=== PATIENT | female | born 1950 | race Caucasian/White ===

== ENCOUNTER 2016-09-18 03:40 | Inpatient (IN) | payer MEDICARE, MEDICAID ==
[2016-09-18 03:59] VITALS: BP 142/86
[2016-09-18] MEDS ORDERED: Sodium Chloride 0.9% 1,000 ML IV SCH (04:45)
[2016-09-18 06:59] LABS: MEAN CELL VOLUME 83.5 fl (81-100)
[2016-09-18 07:07] LABS: % BASOPHILS 0.8 % (0.0-2.0); % EOSINOPHILS 6.3 % (0.0-5.0); % LYMPHOCYTES 35.3 % (20.0-50.0); % MONOCYTES 7.3 % (2.0-10.0); % NEUTROPHILS 50.3 % (40.0-80.0); HEMATOCRIT 36.4 % (35.0-45.0); HEMOGLOBIN 12.2 gm/dL (11.7-16.1); MEAN CORPUSCULAR HEMOGLOBIN 27.9 pg (27.0-31.0); MEAN CORPUSCULAR HGB CONC 33.4 pg (28.0-36.0); MEAN PLATELET VOLUME 9.3 fl; NEUTROPHILE ABSOLUTE 4.6 Th/cmm (1.8-8.0); PLATELET COUNT 242 Th/cmm (150-400); RED BLOOD COUNT 4.35 Mil/cmm (3.80-5.20); RED CELL DISTRIBUTION WIDTH 13.1 % (11.5-20.0); WHITE BLOOD COUNT 9.2 Th/cmm (4.8-10.8)
[2016-09-18 07:26] LABS: ALKALINE PHOSPHATASE 65 U/L (34-104); ANION GAP 8.3 (7.0-16.0); BILIRUBIN,TOTAL 0.4 mg/dL (0.3-1.0); BUN - UREA NITROGEN 8 mg/dL (7-25); CALCIUM SERUM 9.3 mg/dL (8.6-10.3); CARBON DIOXIDE 23.5 mEq/L (21.0-31.0); CHLORIDE 106 mEq/L (98-107); CREATININE - SERUM 0.5 mg/dL (0.6-1.2); GLUCOSE 210 mg/dL (70-105); POTASSIUM SERUM 3.8 mEq/L (3.5-5.1); SGOT 42 U/L (13-39); SGPT/ALT 31 U/L (7-52); SODIUM SERUM 134 mEq/L (136-145)
[2016-09-18] MEDS ORDERED: Insulin Detemir 100 units/mL 10mL Vial SUBQ SCH ×2 (09:00→16:10)
[2016-09-18] MEDS ORDERED: Non-Formulary Item 1 EA (Omeprazole [Omeprazole] 20 MG) PO SCH (09:00)
[2016-09-18] MEDS: Atorvastatin Calcium 10 MG TAB PO SCH (09:36)
[2016-09-18] MEDS: Pantoprazole 40 mg EC Tab PO SCH (09:44)
[2016-09-18 10:58] LABS: URINE BILIRUBIN NEGATIVE (NEGATIVE); URINE BLOOD NEGATIVE (NEGATIVE); URINE COLOR YELLOW; URINE GLUCOSE (UA) 250 mg/dL (NEGATIVE); URINE KETONE NEGATIVE (NEGATIVE); URINE PH 5.5; URINE PROTEIN NEGATIVE (NEGATIVE); URINE UROBILINOGEN 0.2 E.U./dL (0.2 - 1.0)
[2016-09-18 10:59] LABS: URINE BACTERIA FEW /hpf (NONE SEEN); URINE EPITHELIAL CELLS OCCASIONAL /lpf (FEW); URINE RBC NONE SEEN /hpf (0-5)
[2016-09-18] MEDS: INSULIN ASPART SLIDING SCALE 100 UNITS/ML UNIT SUBQ SCH ×3 (12:26→23:40)
--- NOTE | 2016-09-18 17:30 | History & Physical ---
CHIEF COMPLAINT: Nausea, vomiting and vertigo. HISTORY OF PRESENT ILLNESS: This is the case of a 66-year-old female who stated that yesterday ____ she ate [place] food and blood sugar was low ____ blood sugar went to 125. Later, blood sugar was low again and she took something sweet and blood sugar went up. Later, she felt nausea, dizzy and she noticed that systolic blood pressure was high, reason why she went to Emergency Room for evaluation and treatment. At the moment, the patient went to [facility] ER, blood sugar was 255 and on laboratory work, she was found to have elevated WBC. Diagnosis of sepsis was done. The patient was transferred to this hospital to continue treatment. PAST MEDICAL HISTORY: The patient has past medical history of diabetes mellitus, hypertension, hyperlipidemia, chronic anemia, unstable angina, old NC. SOCIAL HISTORY: The patient lives at home with family members. The patient denies abuse of alcohol or any drugs. PAST SURGICAL HISTORY: Unremarkable. MEDICATIONS: Reviewed. ALLERGIES: ____. REVIEW OF SYSTEMS: LUNGS: The patient denies shortness of breath. HEART: The patient denies chest pain. ABDOMEN: The patient referred nausea and dizziness. EXTREMITIES: No edema. Full movement of all extremities. NEUROLOGICAL: The patient is awake, alert, in no acute distress. Nerves, 2-12 grossly intact. IMPRESSION: 1. Sepsis secondary to urinary tract infection. 2. Diabetes mellitus. 3. Hypertension. 4. Hyperlipidemia. 5. Chronic anemia. 6. Unstable angina. 7. Old myocardial infarction. PLAN: 1. The patient will be admitted in the medical surgical floor. 2. IV normal saline. 3. Ceftriaxone. 4. Diet: Diabetic diet, low in sodium. 5. Continue on home medications. 6. CBC, CMP and UA at a.m. JOB# [id number]
[2016-09-18] MEDS: Enoxaparin 30 mg/0.3 mL 0.3mL Syr SUBQ SCH (21:01)
--- NOTE | 2016-09-18 21:02 | Consultation ---
Consult Note - Consult Note Service Date: 09/18/16 Referring Physician: Juanjo Land Consult Note: PHYSICIAN Consultation Note: Date of Admission: 09/18/16 Purpose of Consultation: Chief Complaint: Transfer from [place] for UTI. History of Present Illness: Patient JONNATHAN LONDON was admitted to [facility] with SEPSIS. Patient is 66 y female with histiry of HTN, DM2, hyperlipidemia, TIA, presented to the [facility] ER for nausea. After eating her dinner, she felt weak. She checked her BP and systolic was 197. Her suger was approx. 200 range. on initial evalaution, her temperature was 98.4 degree F and WBC coutn was 13,100. UA showed UTI, so she was trasferred to the [facility] for further care. She was started on rocephin. Past Medical History: HTN, DM2, hyperlipidemia, TIA. Allergies Allergy/AdvReac Type Severity Reaction Status Date / Time iodine Allergy Severe SWELLING Unverified 09/18/16 04:59 Vital Signs Temp 97.5 F 09/18/16 15:00 Pulse 59 09/18/16 15:00 Resp 20 09/18/16 20:00 BP 129/68 09/18/16 15:00 Pulse Ox 97 09/18/16 15:00 Intake & Output 09/18/16 09/18/16 09/19/16 06:59 18:59 06:59 Intake Total 945 Balance 945 Weight (lbs) 80.739 kg Intake: Oral 945 Other: # Voids 3 # Bowel Movements 0 Laboratory Results - last 24 hr 09/18/16 09/18/16 09/18/16 06:21 06:21 07:51 WBC 9.2 RBC 4.35 Hgb 12.2 Hct 36.4 MCV 83.5 MCH 27.9 MCHC Differential 33.4 RDW 13.1 Plt Count 242 MPV 9.3 Neutrophils % 50.3 Lymphocytes % 35.3 Monocytes % 7.3 Eosinophils % 6.3 H Basophils % 0.8 Sodium 134 L Potassium 3.8 Chloride 106 Carbon Dioxide 23.5 Anion Gap 8.3 BUN 8 Creatinine 0.5 L Est GFR ( Amer) > 60.0 Est GFR (Non-Af Amer) > 60.0 BUN/Creatinine Ratio 16.0 Glucose 210 H POC Glucose Hemoglobin A1c % 9.1 H Calcium 9.3 Total Bilirubin 0.4 AST 42 H ALT 31 Alkaline Phosphatase 65 Total Protein 7.1 Albumin 3.6 L Globulin 3.5 Albumin/Globulin Ratio 1.0 Urine Source Urine Color Urine Clarity Urine pH Ur Specific [place] Urine Protein Urine Glucose (UA) Urine Ketones Urine Blood Urine Nitrate Urine Bilirubin Urine Urobilinogen Ur Leukocyte Esterase Urine RBC Urine WBC Ur Epithelial Cells Urine Bacteria 09/18/16 09/18/16 09/18/16 08:00 09:30 11:58 WBC RBC Hgb Hct MCV MCH MCHC Differential RDW Plt Count MPV Neutrophils % Lymphocytes % Monocytes % Eosinophils % Basophils % Sodium Potassium Chloride Carbon Dioxide Anion Gap BUN Creatinine Est GFR ( Amer) Est GFR (Non-Af Amer) BUN/Creatinine Ratio Glucose POC Glucose 234 H 291 H Hemoglobin A1c % Calcium Total Bilirubin AST ALT Alkaline Phosphatase Total Protein Albumin Globulin Albumin/Globulin Ratio Urine Source CATH Urine Color YELLOW Urine Clarity SLIGHTLY CLOUDY Urine pH 5.5 Ur Specific [place] 1.015 Urine Protein NEGATIVE Urine Glucose (UA) 250 H Urine Ketones NEGATIVE Urine Blood NEGATIVE Urine Nitrate POSITIVE H Urine Bilirubin NEGATIVE Urine Urobilinogen 0.2 Ur Leukocyte Esterase NEGATIVE Urine RBC NONE SEEN Urine WBC 6-10 H Ur Epithelial Cells OCCASIONAL Urine Bacteria FEW 09/18/16 17:44 WBC RBC Hgb Hct MCV MCH MCHC Differential RDW Plt Count MPV Neutrophils % Lymphocytes % Monocytes % Eosinophils % Basophils % Sodium Potassium Chloride Carbon Dioxide Anion Gap BUN Creatinine Est GFR ( Amer) Est GFR (Non-Af Amer) BUN/Creatinine Ratio Glucose POC Glucose 157 H Hemoglobin A1c % Calcium Total Bilirubin AST ALT Alkaline Phosphatase Total Protein Albumin Globulin Albumin/Globulin Ratio Urine Source Urine Color Urine Clarity Urine pH Ur Specific [place] Urine Protein Urine Glucose (UA) Urine Ketones Urine Blood Urine Nitrate Urine Bilirubin Urine Urobilinogen Ur Leukocyte Esterase Urine RBC Urine WBC Ur Epithelial Cells Urine Bacteria Home Medication Medication Instructions Recorded Type Amitriptyline [Elavil] 25 mg PO HS 09/18/16 History Aspirin [Ecotrin] 81 mg PO DAILY 09/18/16 History Atenolol 25 mg PO DAILY 09/18/16 History Atorvastatin Calcium [Lipitor] 10 mg PO DAILY 09/18/16 History Benazepril HCl 20 mg PO DAILY 09/18/16 History Loratadine [Claritin] 10 mg PO DAILY 09/18/16 History Nitroglycerin [Nitroglycerin*] 0.4 mg SL PRN 09/18/16 History Omeprazole 20 mg PO DAILY 09/18/16 History metFORMIN [Glucophage] 1,000 mg PO BID 09/18/16 History Current Medications Generic Name Dose Route Start Last Admin Trade Name Freq PRN Reason Stop Dose Admin Acetaminophen 650 mg 09/18/16 04:33 Tylenol PO 11/17/16 04:32 Q4H PRN Pain (Mild) Amitriptyline HCl 25 mg 09/18/16 21:00 Elavil PO 11/17/16 20:59 HS LUIS Protocol Aspirin 81 mg 09/18/16 09:00 09/18/16 09:36 Ecotrin PO 11/17/16 08:59 81 mg DAILY LUIS Administration Atenolol 25 mg 09/18/16 09:00 09/18/16 09:35 Tenormin PO 11/17/16 08:59 25 mg DAILY LUIS Administration Atorvastatin Calcium 10 mg 09/18/16 09:00 09/18/16 09:36 Lipitor PO 11/17/16 08:59 10 mg DAILY LUIS Administration Protocol Benazepril HCl 20 mg 09/18/16 09:00 09/18/16 09:36 Lotensin PO 11/17/16 08:59 20 mg DAILY LUIS Administration Enoxaparin Sodium 30 mg 09/18/16 21:00 Lovenox SUBQ 11/17/16 20:59 Q12HR LUIS Sodium Chloride 1,000 mls @ 75 mls/hr 09/18/16 04:45 09/18/16 17:54 Nacl 0.9% IV 11/17/16 04:44 75 mls/hr .[id number] LUIS Administration Ceftriaxone Sodium 1 gm/ 50 mls @ 100 mls/hr 09/18/16 23:00 Sodium Chloride IV 11/17/16 22:59 Q24HR LUIS Insulin Aspart 0 units 09/18/16 12:00 09/18/16 17:53 Novolog Insulin Sliding Scale SUBQ 11/17/16 11:59 2 units Q6HR LUIS Administration Protocol Insulin Detemir 75 units 09/18/16 16:10 Levemir Insulin SUBQ 11/17/16 08:59 DAILY LUIS Protocol Meclizine HCl 25 mg 09/18/16 16:15 09/18/16 17:59 Antivert PO 11/17/16 16:14 25 mg Q8H LUIS Administration Metformin HCl 1,000 mg 09/18/16 09:00 09/18/16 17:53 Glucophage PO 11/17/16 08:59 1,000 mg BID LUIS Administration Nitroglycerin 0.4 mg 09/18/16 08:45 Nitrostat SL 11/17/16 08:44 STAT PRN PRN Chest Pain Pantoprazole Sodium 40 mg 09/18/16 09:00 09/18/16 09:44 Protonix PO 11/17/16 08:59 40 mg QDAC LUIS Administration Review of Systems: A 12 point ROS was reviewed with the pertinent positive and negatives noted in the HPI. Social History Smoking Status Never smoker Drug Use No Alcohol Use No Family Medical History Family Medical History Start: 09/18/16 03: 57 Freq: ONCE Status: Active Document 09/18/16 03:57 MILLICENT (Rec: 09/18/16 04:12 [email or web address] [id number] [id number]) Family Medical History Mother Name: Emi lisa Age 17 Ethnicity Living Status Hx Family Cancer No Hx Family Coronary Artery Disease No Hx Family Congestive Heart Failure No Hx Family Hypertension No Hx Family Stroke No Hx Family Diabetes No Hx Family Seizures No Hx Family Dementia No Hx Family AIDS No Hx Family HIV No Hx Family COPD No Hx Family Hepatitis No Hx Family Psychiatric Problems No Hx Family Tuberculosis No Physical Exam: General: Alert and Oriented x3, No Acute Distress HEENT: EOMI Bilaterally, PERRLA Bilaterally, Head is normocephalic, atraumatic on inspection. Cardio: +S1/S2 Auscultated, RRR, no murmurs/rubs/gallops noted Respiratory: Clear to Auscultate Bilaterally Abdominal: Soft, Nondistended, Nontender to palpation x 4 quadrants. NO CVA tenderness. Genital/Urinary: Deferred. Extremities: No Edema noted in the lower extremities Neurological: Cranial Nerves II-XII intact bilaterally, Gait Steady, No Focal Deficits noted. Assessment/Plan: 1. UTI. 2. HTN, uncontrolled. 3, DM2. 4. Hyperlipidemia. 5. TIA 6. Leukocytosis, improved. Recommendations: May change rocephin to cipro po for total 7 days. and agree with DC plan. May follow up with PCP Signed, Preston Camacho M.D. [id number]
[2016-09-18] MEDS ORDERED: cefTRIAXone 1 GM in Sodium Chloride 0.9% 50 ML IV SCH (23:00)
[2016-09-19] MEDS: INSULIN ASPART SLIDING SCALE 100 UNITS/ML UNIT SUBQ SCH (05:42)
[2016-09-19 06:01] LABS: % EOSINOPHILS 8.6 % (0.0-5.0); % LYMPHOCYTES 43.4 % (20.0-50.0); % MONOCYTES 6.1 % (2.0-10.0); % NEUTROPHILS 40.9 % (40.0-80.0); HEMATOCRIT 37.9 % (35.0-45.0); HEMOGLOBIN 12.7 gm/dL (11.7-16.1); MEAN CELL VOLUME 82.8 fl (81-100); MEAN CORPUSCULAR HEMOGLOBIN 27.8 pg (27.0-31.0); MEAN CORPUSCULAR HGB CONC 33.5 pg (28.0-36.0); MEAN PLATELET VOLUME 9.3 fl; NEUTROPHILE ABSOLUTE 3.2 Th/cmm (1.8-8.0); PLATELET COUNT 261 Th/cmm (150-400); RED BLOOD COUNT 4.58 Mil/cmm (3.80-5.20); RED CELL DISTRIBUTION WIDTH 13.1 % (11.5-20.0); WHITE BLOOD COUNT 7.9 Th/cmm (4.8-10.8)
[2016-09-19 06:19] LABS: ALKALINE PHOSPHATASE 59 U/L (34-104); ANION GAP 10.6 (7.0-16.0); BILIRUBIN,TOTAL 0.4 mg/dL (0.3-1.0); BUN - UREA NITROGEN 11 mg/dL (7-25); BUN/CREATININE RATIO 18.3; CALCIUM SERUM 9.2 mg/dL (8.6-10.3); CARBON DIOXIDE 21.4 mEq/L (21.0-31.0); CHLORIDE 107 mEq/L (98-107); CREATININE - SERUM 0.6 mg/dL (0.6-1.2); GLUCOSE 156 mg/dL (70-105); SGOT 79 U/L (13-39); SGPT/ALT 44 U/L (7-52); SODIUM SERUM 135 mEq/L (136-145)
--- NOTE | 2016-09-19 07:08 | Admit Criteria Form ---
Admit Criteria Forms - Admit Criteria Diagnosis: SEPSIS and OTHER FEBRILE ILLNESS, W/O FOCAL INFECTION Clinical Indications for Admission to Inpatient Care ( Place 'X' for any and all applicable criteria): Admission is indicated for ANY ONE of the following (1)(2)(3)(4): [ ] I. Bacteremia [x ]II. Suspected or identified specific infection requiring hospitalization (eg, meningitis, endocarditis) [ ]III. Hemodynamic instability [ ]IV. Altered mental status [ ]V. Failure or unavailability of outpatient antimicrobial treatment [ ]. Hypoxemia [ ]VII. Seizures [ ]VIII. High-risk febrile neutropenia [ ]IX. Need for parenteral antibiotic in patient who is likely to abuse vascular access device (eg, injection drug user) [A](7) [ ]X. Temperature greater than 104.9 degrees F (40.5 degrees C) (oral) [x ]XI. Inpatient admission required rather than observation care because of ANY ONE of the following: [ ]1) Specific infection identified that is too severe for outpatient treatment or observation care trial [ ]2) Metabolic disorder (eg, hypoglycemia, hyperglycemia, metabolic acidosis) that is severe or persistent [ ]3) Temperature greater than 103.1 degrees F (39.5 degrees C) ( oral) that is not responsive to observation care treatment [ ]4) IV fluid to replace significant ongoing (eg, for over 24 hours) losses (> 3 L/m2 per day) [ ]5) Supplemental oxygen or respiratory treatments for over 24 hours that is performable only in acute inpatient setting [ ]6) Parenteral nutrition regimen need that must be implemented on inpatient basis [ ]7) Strict or protective (eg, laminar flow) isolation [x ]8) Other condition, treatment or monitoring requiring inpatient admission Extended stay beyond goal length of stay may be needed for(1)(3) [ ]a) Sepsis or septic shock(22) [ ]b) Positive blood cultures [ ]c) Insufficient oral intake [ ]d) High-risk febrile neutropenia(29)(30) [ ]e) Continued fever and clinical instability [ ]f) Clinically active comorbid illness (e.g,heart failure, renal failure , diabetes) The original [employer] content created by [employer] has been revised. The portions of the content which have been revised are identified through the use of italic text or in bold, and [facility] [employer] has neither reviewed nor approved the modified material. All other unmodified content is copyright [facility]. Please see references footnoted in the original [facility] edition 2016 Admit Criteria Met?: Yes
[2016-09-19] MEDS: Atorvastatin Calcium 10 MG TAB PO SCH (09:05)
[2016-09-19] MEDS: Enoxaparin 30 mg/0.3 mL 0.3mL Syr SUBQ SCH (09:09)
[2016-09-19] MEDS: Pantoprazole 40 mg EC Tab PO SCH (09:11)
--- NOTE | 2016-09-19 09:27 | General Progress Note ---
Subjective - Review of Systems Service Date: 09/19/16 Subjective: I am fine Objective - Results Result Diagrams: 09/19/16 05:05 09/19/16 05:05 Recent Labs: Laboratory Last Values WBC 7.9 Th/cmm (4.8-10.8) 09/19/16 05:05 RBC 4.58 Mil/cmm (3.80-5.20) 09/19/16 05:05 Hgb 12.7 gm/dL (11.7-16.1) 09/19/16 05:05 Hct 37.9 % (35.0-45.0) 09/19/16 05:05 MCV 82.8 fl (81-100) 09/19/16 05:05 MCH 27.8 pg (27.0-31.0) 09/19/16 05:05 MCHC Differential 33.5 pg (28.0-36.0) 09/19/16 05:05 RDW 13.1 % (11.5-20.0) 09/19/16 05:05 Plt Count 261 Th/cmm (150-400) 09/19/16 05:05 MPV 9.3 fl 09/19/16 05:05 Neutrophils % 40.9 % (40.0-80.0) 09/19/16 05:05 Lymphocytes % 43.4 % (20.0-50.0) 09/19/16 05:05 Monocytes % 6.1 % (2.0-10.0) 09/19/16 05:05 Eosinophils % 8.6 % (0.0-5.0) H 09/19/16 05:05 Basophils % 1.0 % (0.0-2.0) 09/19/16 05:05 Sodium 135 mEq/L (136-145) L 09/19/16 05:05 Potassium 4.0 mEq/L (3.5-5.1) 09/19/16 05:05 Chloride 107 mEq/L (98-107) 09/19/16 05:05 Carbon Dioxide 21.4 mEq/L (21.0-31.0) 09/19/16 05:05 Anion Gap 10.6 (7.0-16.0) 09/19/16 05:05 BUN 11 mg/dL (7-25) 09/19/16 05:05 Creatinine 0.6 mg/dL (0.6-1.2) 09/19/16 05:05 Est GFR ( Amer) > 60.0 ml/min (>90) 09/19/16 05:05 Est GFR (Non-Af Amer) > 60.0 ml/min 09/19/16 05:05 BUN/Creatinine Ratio 18.3 09/19/16 05:05 Glucose 156 mg/dL (70-105) H 09/19/16 05:05 POC Glucose 160 MG/DL (70 - 105) H 09/19/16 05:32 Hemoglobin A1c % 9.1 % (4.0-6.0) H 09/18/16 07:51 Calcium 9.2 mg/dL (8.6-10.3) 09/19/16 05:05 Total Bilirubin 0.4 mg/dL (0.3-1.0) 09/19/16 05:05 AST 79 U/L (13-39) H 09/19/16 05:05 ALT 44 U/L (7-52) 09/19/16 05:05 Alkaline Phosphatase 59 U/L (34-104) 09/19/16 05:05 Total Protein 7.0 gm/dL (6.0-8.3) 09/19/16 05:05 Albumin 3.5 gm/dL (3.7-5.3) L 09/19/16 05:05 Globulin 3.5 gm/dL 09/19/16 05:05 Albumin/Globulin Ratio 1.0 (1.0-1.8) 09/19/16 05:05 Urine Source CATH 09/18/16 09:30 Urine Color YELLOW 09/18/16 09:30 Urine Clarity SLIGHTLY CLOUDY (CLEAR) 09/18/16 09:30 Urine pH 5.5 09/18/16 09:30 Ur Specific [place] 1.015 (1.005-1.030) 09/18/16 09:30 Urine Protein NEGATIVE mg/dL (NEGATIVE) 09/18/16 09:30 Urine Glucose (UA) 250 mg/dL (NEGATIVE) H 09/18/16 09:30 Urine Ketones NEGATIVE mg/dL (NEGATIVE) 09/18/16 09:30 Urine Blood NEGATIVE (NEGATIVE) 09/18/16 09:30 Urine Nitrate POSITIVE (NEGATIVE) H 09/18/16 09:30 Urine Bilirubin NEGATIVE (NEGATIVE) 09/18/16 09:30 Urine Urobilinogen 0.2 E.U./dL (0.2 - 1.0) 09/18/16 09:30 Ur Leukocyte Esterase NEGATIVE (NEGATIVE) 09/18/16 09:30 Urine RBC NONE SEEN /hpf (0-5) 09/18/16 09:30 Urine WBC 6-10 /hpf (0-5) H 09/18/16 09:30 Ur Epithelial Cells OCCASIONAL /lpf (FEW) 09/18/16 09:30 Urine Bacteria FEW /hpf (NONE SEEN) 09/18/16 09:30 - Physical Exam Vitals and I&O: Vital Signs Temp 98 F 09/19/16 04:00 Pulse 64 09/19/16 09:06 Resp 18 09/19/16 04:00 BP 147/74 09/19/16 09:06 Pulse Ox 98 09/19/16 04:00 Intake & Output 09/18/16 09/19/16 09/19/16 18:59 06:59 18:59 Intake Total 945 Balance 945 Intake: Oral 945 Other: # Voids 3 # Bowel Movements 0 Active Medications: Current Medications Acetaminophen (Tylenol) 650 mg PO Q4H PRN PRN Reason: Pain (Mild) Stop: 11/17/16 04:32 Amitriptyline HCl (Elavil) 25 mg PO [facility] PRN Reason: Protocol Stop: 11/17/16 20:59 Last Admin: 09/18/16 21:01 Dose: 25 mg Aspirin (Ecotrin) 81 mg PO DAILY [facility] Stop: 11/17/16 08:59 Last Admin: 09/19/16 09:06 Dose: 81 mg Atenolol (Tenormin) 25 mg PO DAILY [facility] Stop: 11/17/16 08:59 Last Admin: 09/19/16 09:06 Dose: 25 mg Atorvastatin Calcium (Lipitor) 10 mg PO DAILY [facility] PRN Reason: Protocol Stop: 11/17/16 08:59 Last Admin: 09/19/16 09:05 Dose: 10 mg Benazepril HCl (Lotensin) 20 mg PO DAILY [facility] Stop: 11/17/16 08:59 Last Admin: 09/19/16 09:05 Dose: 20 mg Enoxaparin Sodium (Lovenox) 30 mg SUBQ Q12HR [facility] Stop: 11/17/16 20:59 Last Admin: 09/19/16 09:09 Dose: Not Given Sodium Chloride (Nacl 0.9%) 1,000 mls @ 75 mls/hr IV .[id number] [facility] Stop: 11/17/16 04:44 Last Admin: 09/18/16 17:54 Dose: 75 mls/hr Ceftriaxone Sodium 1 gm/ (Sodium Chloride) 50 mls @ 100 mls/hr IV Q24HR [facility] Stop: 11/17/16 22:59 Last Admin: 09/18/16 22:38 Dose: 100 mls/hr Insulin Aspart (Novolog Insulin Sliding Scale) 0 units SUBQ Q6HR [facility] PRN Reason: Protocol Stop: 11/17/16 11:59 Last Admin: 09/19/16 05:42 Dose: 2 units Insulin Detemir (Levemir Insulin) 75 units SUBQ DAILY [facility] PRN Reason: Protocol Stop: 11/17/16 08:59 Last Admin: 09/19/16 09:14 Dose: 75 units Meclizine HCl (Antivert) 25 mg PO Q8H [facility] Stop: 11/17/16 16:14 Last Admin: 09/19/16 09:06 Dose: 25 mg Metformin HCl (Glucophage) 1,000 mg PO BID [facility] Stop: 11/17/16 08:59 Last Admin: 09/19/16 09:06 Dose: 1,000 mg Nitroglycerin (Nitrostat) 0.4 mg SL STAT PRN PRN PRN Reason: Chest Pain Stop: 11/17/16 08:44 Pantoprazole Sodium (Protonix) 40 mg PO QDAC [facility] Stop: 11/17/16 08:59 Last Admin: 09/19/16 09:11 Dose: 40 mg General: Alert, Oriented x3, Cooperative, No acute distress HEENT: Atraumatic Neck: Supple Cardiovascular: Regular rate Lungs: Clear to auscultation Abdomen: Bowel sounds, Soft Extremities: Other (No edema) Neurological: Normal gait Skin: Other (Warm and dry) Psych/Mental Status: Mental status NL Assessment/Plan - Assessment Assessment: Patient is awake, alert, calm in no acute distress. WBC is normal, patient asymptomatic. - Plan Plan: Patient will be discharge. Nutritional Asmnt/Malnutr-PDOC - Dietary Evaluation Malnutrition Findings (Please click <Entered> for more info): Nutritional Asmnt/Malnutrition Start: 09/18/16 11: 04 Text: Status: Complete Freq: Document 09/18/16 13:35 MMKELLY (Rec: 09/18/16 13:41 MMULAMIE MCKEON- [email or web address]) Nutritional Asmnt/Malnutrition Patient General Information Nutritional Screening High Risk Screening
== END 2016-09-19 10:00 | disposition home or self-care (01) | DRG 872 ==
LOC: MSI 03:40
PROVIDERS: ADMIT General Practice; ATTEND General Practice
DX: A41.9 Sepsis, unspecified organism (principal); I10 Essential (primary) hypertension; I20.0 Unstable angina; N39.0 Urinary tract infection, site not specified; E11.9 Type 2 diabetes mellitus without complications; D64.9 Anemia, unspecified; E78.5 Hyperlipidemia, unspecified; I25.2 Old myocardial infarction; Z86.73 Personal history of transient ischemic attack (TIA), and cerebral infarction without residual deficits; Z91.041 Radiographic dye allergy status; Z79.82 Long term (current) use of aspirin; Z79.4 Long term (current) use of insulin; Z79.84 Long term (current) use of oral hypoglycemic drugs
CPT/HCPCS: 36415-UA; 80053-TC; 81001-TC; 82948-90; 83036-90; 85025-TC; J0696; J1650; J1815; J7030; Z7610